=== PATIENT | female | born 1965 | race Caucasian/White ===

== ENCOUNTER 2024-09-06 13:13 | Outpatient (OUT) | payer BC, SELFPAY ==
--- NOTE | 2024-09-06 13:25 | MM_ITS ---
Patient Name: PÉREZ ALFARO MR#: [id number] : 1965 Exam Date: 09/06/2024 Ordering Doctor: COLLEEN SYED . RADIOLOGY REPORT PROCEDURE: MM TOMOSYNTHESIS SCREENING BI COMPARISON: MG MAMM SCREEN CAPRI W CAD, 07/12/2018. MG MAMM SCREEN CAPRI W CAD, 06/03/2015. MG MAMM CAPRI SCRN W CAD DIG, 11/16/2013. INDICATIONS: Screening Calculator Name NCI Breast Cancer Risk Assessment Tool 5 Year Breast Cancer Risk 1.60% Lifetime Breast Cancer Risk 7.90% Personal Breast Cancer No Personal Ovarian Cancer No Treatments None Family Cancers None LOCATION: [facility] BREAST COMPOSITION: There are scattered areas of fibroglandular density. FINDINGS: DIAGNOSTIC CATEGORY 1--NEGATIVE. RIGHT BREAST: No significant suspicious finding. No significant change has occurred. LEFT BREAST: No significant suspicious finding. No significant change has occurred. RECOMMENDATIONS: ROUTINE MAMMOGRAM AND CLINICAL EVALUATION IN 12 MONTHS. PLEASE NOTE: A NORMAL MAMMOGRAM DOES NOT EXCLUDE THE POSSIBILITY OF BREAST CANCER. A CLINICALLY SUSPICIOUS PALPABLE LUMP SHOULD BE BIOPSIED. Dictated by: Joe García M.D. on 09/07/2024 at 16:09 Approved by: Joe García M.D. on 09/07/2024 at 16:12
== END 2024-09-06 13:14 | disposition home or self-care (01) ==
PROVIDERS: PCP Nurse Practitioner; Visit Provider Nurse Practitioner
DX: Z12.31 Encounter for screening mammogram for malignant neoplasm of breast (principal)
CPT/HCPCS: 77063; 77067

== ENCOUNTER 2025-07-28 08:54 | Outpatient (OUT) | payer OTHER, SELFPAY ==
--- OUTSIDE RECORDS SUMMARY | 2025-07-28 09:01 | XMS_ITS | Clinical Summary ---
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 [address] [id number] Phong Cabral PA Open fracture of tuft of distal phalanx of finger (Primary Dx)05/29/2025 11:25 AM EDTAncillary Procedure [facility] [address] [place] [address] 05/29/2025Travelfrom Last 3 Months Family History Medical HistoryRelationNameCommentsDiabetesFatherHeart diseaseFatherHypertension PaaouvCxkvnhJmphwgRnrepsjvDxqaQbrnbtOyyxqzbfYfvtvumu2DyrccdZbqiwiolHgqduv Social History Tobacco UseTypesPacks/DayYears UsedDateSmoking Tobacco: NeverSmokeless Tobacco: Never Tobacco Cessation:Counseling Given: Not Answered Alcohol UseStandard Drinks/WeekCommentsYes0 (1 standard drink = 0.6 oz pure alcohol)Caffeine intake: 2-3 cups per dayAUDIT-CAnswerDate RecordedQ1: How often do you have a drink containing alcohol?2-4 times a month06/06/2023Q2: How many drinks containing alcohol do you have on a typical day when you are drinking?1 or Frequency of Binge DrinkingNot on file06/06/2023Comments UnknownSex and Gender InformationValueDate RecordedSex Assigned at BirthNot on fileLegal WdnHyvgcf87/01/2023 8:34 PM EDTGender YckwxomsBbwjlx49/08/2023 2:28 PM EDTSexual OrientationNot on file Last Filed Vital Signs Vital SignReadingTime TakenCommentsBlood Fftgnnnq980/8203 12:00 PM EDT Pulse--Temperature--Respiratory Rate--Oxygen Saturation--Inhaled Oxygen Concentration--Jsmgea91.4 kg (197 lb)05/29/2025 2:04 PM WTFDsyijw620.4 cm (5' 5.5 )05/29/2025 2:04 PM EDTBody Mass Index32.281 2:04 PM EDT Plan of Treatment Health MaintenanceDue DateLast DoneCommentsCT Zaizxeognivd1965FIT-DNA 1965FIT1965FOBT1965 5072Xwlgmpzvgyiny1963Pap Smear1984 Jhkoaetdh69, 08/23/2018, 07/12/2018COVID-19 Vaccine ( season)504/09/2020, 10/18/2020Influenza Vaccine (#1)2025 Cervical Cancer Oixrfdrpt59/17/2026HPV/Aooptu07603/1Colonoscopy /2Colorectal Cancer Smwohfcqz16/04/2032Pneumococcal Vaccine: Pediatrics (0 to 5 Years) and At-Risk Patients (6 to 64 Years)Aged OutNo longer eligible based on patient's age to complete this topic Procedures Procedure NamePriorityDate/TimeAssociated DiagnosisCommentsXR FINGERS 2+ VIEWS REWRKLnqsmiy65/21/2025 11:20 AM EDT Open fracture of tuft of distal phalanx of finger BI MAMMOGRAM SCREENING CQPFMSXNYYcsucee73/09/2021 Encounter for screening for malignant neoplasm of cervix Encounter for screening mammogram for malignant neoplasm of breast Encounter for routine checking of intrauterine contraceptive device Abnormal weight gain Family history of other endocrine, nutritional and metabolic diseases Encounter for gynecological examination (general) (routine) with abnormal findings THINPREP TIS PAP REFLEX HPV MRNA E6/E7 (19930)Iuuwdlk2910/23/2020 from Last 3 Months or Most Recently Relevant to Health Maintenance Results * XR fingers 2+ views right (05/29/2025 11:20 AM EDT)Anatomical RegionLaterality ModalityUpper Extremities, FingersRightRadiographic ImagingSpecimen (Source) Anatomical Location / LateralityCollection Method / VolumeCollection Time Received Time Narrative 05/29/2025 2:47 PM EDT Imaging Result: ??AP lateral and oblique of the right little finger demonstrating no change in previous arthritic findings of D IP and PIP as well as a small little tuft fragment with less swelling. Authorizing ProviderResult TypeResult StatusTodd D [place] PAIMG XR PROCEDURES Final Result * Bilateral screening mammogram (06/17/2021)Anatomical RegionLateralityModality BreastBilateralMammographySpecimen (Source)Anatomical Location / Laterality Collection Method / VolumeCollection TimeReceived Time Impressions 06/17/2021 12:00 AM EST NO MAMMOGRAPHIC EVIDENCE OF MALIGNANCY. ROUTINE FOLLOW-UP IS RECOMMENDED IN ONE YEAR. RESULT CODE: 1 ?? Negative DENSITY CODE: 2 (approximately 25-50% glandular) FOLLOW UP: 1YR The false-negative rate of mammography is approximately 10-percent. Management of a palpable abnormality must be based on clinical grounds. Patient was entered into a reminder system with a target due date for the next mammogram. Impression dictated by: Xiomara Kwan M.D.06/17/2021 7:35 AM Dictation Location: [facility] Transcribed By: ? PWS ?06/17/21734 Dictated By: ?Xiomara Kwan MD ?06/17/21731 Signed By: <Electronically signed by MD Xiomara Kwan in OV> ? 06/17/21734 Narrative 06/17/2021 12:00 AM EST PERFORMED AT [facility] LOCATION:[place] [address] ?[facility] ?[facility] ?[address] ? [place] [address] ? Mammography Report ? Signed Patient: Edith,Sherita A ?MR#: [id number] : 1965 ?Acct:[id number] Age/Sex: 56 / F ?ADM Date: 11/08/21 Loc: [place] ?Room: ?Type: DEP CLI Attending Dr: Bill Mina DO Ordering Provider: Bill Mina DO Date of Service: 06/16/21 MM/MM screening mammo BI w/CAD: screening;Encounter for screening mammogram for malignant ne Copies to: MD Bill Lane,DO CLINICAL DATA: ??Screening for malignancy. BILATERAL SCREENING MAMMOGRAMS - FULL FIELD DIGITAL WITH TOMOSYNTHESIS AND CAD Routine and tomosynthesis craniocaudal and mediolateral oblique views of both breasts were obtained using low-dose digital technique. ??Comparison is made to prior studies from June 03, 2012 through June 03, 2015. ??This examination was reviewed with the aid of CAD. There are scattered fibroglandular densities. ??There are no dominant masses, typically malignant calcifications or architectural distortion. ??There has been no significant interval change. MM/MM screening mammo BI w/CAD Procedure Note CONVERSION, GENERIC - 02/12/2023 PERFORMED AT [facility] LOCATION:[address] [place] [address] Mammography Report Signed Patient: Sherita Sharma AMR#: [id number] : 1965Acct:[id number] Age/Sex: 56 / FADM Date: 06/16/21 Loc: [place] Room:Type: DEP CLI Attending Dr: Bill Mina DO Ordering Provider: Bill Mina DO Date of Service: 06/16/21 MM/MM screening mammo BI w/CAD:screening;Encounter for screening mammogram for malignant ne Copies to: MD Bill Lane,DO CLINICAL DATA: Screening for malignancy. BILATERAL SCREENING MAMMOGRAMS - FULL FIELD DIGITAL WITH TOMOSYNTHESISAND CAD Routine and tomosynthesis craniocaudal and mediolateral oblique views ofboth breasts were obtained using low-dose digital technique. Comparison is made to prior studiesfrom June 03, 2012 through June 03, 2015. This examination was reviewed with the aid of CAD. There are scattered fibroglandular densities. There are no dominantmasses, typically malignant calcifications or architectural distortion. There has been no significant interval change. MM/MM screening mammo BI w/CAD IMPRESSION: NO MAMMOGRAPHIC EVIDENCE OF MALIGNANCY. ROUTINE FOLLOW-UP IS RECOMMENDED IN ONE YEAR. RESULT CODE: 1 Negative DENSITY CODE: 2 (approximately 25-50% glandular) FOLLOW UP: 1YR The false-negative rate of mammography is approximately 10-percent. Management of a palpable abnormality must be based on clinical grounds. Patient was entered into a reminder system with a target due date for thenext mammogram. Impression dictated by: Xiomara Kwan M.D.06/17/2021 7:35 AM Dictation Location: [facility] Transcribed By: [facility] 06/17/21 0735 Dictated By: Xiomara Kwan MD 06/17/21 0732 Signed By: <Electronically signed by MD Xiomara Kwan in OV> 06/17/21 0735 Authorizing ProviderResult TypeResult StatusWilliam Deanne iMna DOI BI PROCEDURES Final Result * THINPREP TIS PAP REFLEX HPV MRNA E6/E7 ([id number]) (10/23/2020)ComponentValueRef RangeTest MethodAnalysis TimePerformed AtPathologist SignatureCLINICAL INFORMATION:LEEPNOMS LEGACY EXTERNAL LABLMP:01/2018[facility] PREV. PAP:NLNOMS LEGACY EXTERNAL LABPREV. BX:HX OF DYSPLASIANOMS LEGACY EXTERNAL LABSOURCE:EndocervixNOMS LEGACY EXTERNAL LABSTATEMENT OF ADEQUACY: SATISFACTORY FOR EVALUATION Partially obscuring inflammationNOMS LEGACY EXTERNAL LABINTERPRETATION/RESULT:SEE COMMENTNOMS LEGACY EXTERNAL LABComment: Negative for intraepithelial lesion or malignancy. Atrophic pattern; predominantly parabasal cells COMMENT:SEE COMMENTNOMS LEGACY EXTERNAL LABComment: This Pap test has been evaluated with computer assisted technology. Parabasal cells in smears that lack maturation due to atrophy or other hormonal reasons cannot be differentiated from transformation zone cells. Accordingly, presence or absence of endocervical or transformation zone components cannot be reported in this patient. DIGITAL COMMUNITY MANAGER:SEE COMMENTNOMS LEGACY EXTERNAL LABComment: BH, CT(ASCP) CT screening location: [facility], [address] [place] [address], [place] [address]. COMMENTSEE COMMENTNOMS LEGACY EXTERNAL LABComment: EXPLANATORY NOTE: The Pap is a screening test for cervical cancer. It is not a diagnostic test and is subject to false negative and false positive results. It is most reliable when a satisfactory sample, regularly obtained, is submitted with relevant clinical findings and history, and when the Pap result is evaluated along with historic and current clinical information. NO COLLECTION DATE RECEIVED. WE HAVE USED THE DATE THE SPECIMEN WAS RECEIVED BY THIS LABORATORY THE COLLECTION DATE. IF THIS IS INCORRECT, PLEASE CONTACT CLIENT SERVICES. PHONE NUMBER: [phone] Specimen (Source)Anatomical Location / LateralityCollection Method / Volume Collection TimeReceived Time10/23/2020 Narrative Authorizing ProviderResult TypeResult StatusWilliajade MAHONEY LABSFinal ResultPerforming OrganizationAddressCity/State/ZIP CodePhone Number [facility] from Last 3 Months or Most Recently Relevant to Health Maintenance Insurance
[2025-07-28 11:31] LABS: Hematocrit 39.4 % (36.0-48.0); Hemoglobin 13.2 g/dL (12.0-16.0); Immature Granulocytes Abs Auto 0.01 10^3/uL (0.00-0.03); Immature Granulocytes Pct Auto 0.2 % (0.0-0.5); Lymphocytes Absolute Auto 2.8 10^3/uL (1.2-3.8); Mean Corpuscular HGB Conc 33.5 g/dL (29.9-35.2); Mean Corpuscular Hemoglobin 31.1 pg (26.7-34.0); Mean Corpuscular Volume 92.9 fL (81.0-99.0); Platelet Count 264 10^3/uL (150-450); Red Blood Count 4.24 10^6/uL (4.20-5.40); White Blood Count 5.7 10^3/uL (4.0-11.0)
[2025-07-28 12:22] LABS: Alanine Aminotransferase 53 U/L (14-59); Albumin Globulin Ratio 1.1; Albumin Level 4.0 g/dL (3.4-5.0); Alkaline Phosphatase 89 U/L (46-116); Anion Gap 9.5; Aspartate Amino Transferase 20 U/L (15-37); Blood Urea Nitrogen 10.0 mg/dL (7.0-18.0); Calcium 9.1 mg/dL (8.5-10.1); Carbon Dioxide 28.5 mmol/L (21.0-32.0); Chloride 104 mmol/L (98-107); Creatine Kinase 102 U/L (26-192); Estimated GFR (African America >60 (>=60 mL/min/1.73m^2); Estimated GFR (Non-African Ame >60 (>=60 mL/min/1.73m^2); Globulin 3.7 g/dL; Glucose 97 mg/dL (74-106); Potassium 4.0 mmol/L (3.5-5.1); Sodium 138 mmol/L (136-145); TSH W/ REFLEX FT4 1.709 uIU/mL (0.358-3.740); Total Protein 7.7 g/dL (6.4-8.2)
== END 2025-07-28 08:55 | disposition home or self-care (01) ==
LOC: LAB 08:58
PROVIDERS: PCP Student in an Organized Health Care Education/Training Program; Visit Provider Student in an Organized Health Care Education/Training Program
DX: G72.9 Myopathy, unspecified (principal); E55.9 Vitamin D deficiency, unspecified
CPT/HCPCS: 36415; 80053; 82085; 82306; 82550; 83615; 84443; 85025